=== PATIENT | male | born 1960 | race African-American/Black ===

== ENCOUNTER 2019-02-28 00:51 | Emergency (ER) | payer MEDICAID, OTHER ==
[~2019-02-28] VITALS: Ht 170.2 cm; Wt 61.7 kg
[~2019-02-28 00:51] MED LIST: IBUP-727 PO; QUET200T PO; ROB750 PO
[2019-02-28 00:56] VITALS: BP 163/82; PULSE 96; RESP 18; Ht 170.2 cm; Wt 61.7 kg
[2019-02-28] MEDS ORDERED: OXYCODONE/ACETAMINOPHEN (5/325) TAB PO ONE (03:30)
[2019-02-28] MEDS ORDERED: LIDOCAINE 4% CR TOP ONE (03:30)
[2019-02-28] MEDS ORDERED: LIDOCAINE 1% (MDV) 20 ML INJ SC ONE (03:30)
--- NOTE | 2019-02-28 03:45 | ERD ---
ER Documentation Chief Complaint Chief Complaint R 2nd toe pain after accidentally kicking [place] 3 days ago HPI 58-year-old male presents with complaint of swelling to the second toe for the past 3 days. He states that he is convinced it is infected and he would like it drained. Also states that there is pain in the same toe when walking. Denies any treatments. States the pain is currently 8 out of 10. Denies any fevers, chills, numbness. ROS All systems reviewed and are negative except as per history of present illness. Medications Home Meds Active Scripts Sulfamethoxazole/Trimethoprim* (Bactrim Ds* Tablet) 1 Each Tablet, 1 TAB PO BID, #14 TAB Prov:JOSEPH BURR PA-C 02/28/19 Cephalexin* (Keflex*) 500 Mg Capsule, 500 MG PO QID for 7 Days, CAP Prov:JOSEPH BURR PA-C 02/28/19 Reported Medications Ibuprofen (Motrin) 600 Mg Tablet, 600 MG PO TID 02/06/12 Quetiapine Fumarate* (Seroquel*) 200 Mg Tablet, 200 MG PO HS 02/06/12 Methocarbamol (Robaxin) 750 Mg Tab, 750 MG PO TID 02/06/12 Allergies Allergies: Coded Allergies: penicillin G (Verified Allergy, Severe, RASHES, 02/06/12) PMhx/Soc History of Surgery: No Anesthesia Reaction: No Hx Neurological Disorder: No Hx Respiratory Disorders: No Hx Cardiac Disorders: No Hx Psychiatric Problems: Yes (BIPOLAR) Hx Miscellaneous Medical Probl: Yes (HEP C) Hx Alcohol Use: No Hx Substance Use: Yes (Marijuana) Hx Tobacco Use: Yes (1 PACK A DAY) Smoking Status: Current every day smoker FmHx Family History: No diabetes, No coronary disease, No other Physical Exam Vitals Vital Signs Date Temp Pulse Resp B/P (MAP) Pulse Ox O2 O2 Flow FiO2 Time Delivery Rate 02/28/19 99.4 96 18 163/82 98 00:56 (109) Physical Exam Const: No acute distress Head: Atraumatic Eyes: Normal Conjunctiva ENT: Normal External Ears, Nose and Mouth. Neck: Full range of motion. No meningismus. Resp: Clear to auscultation bilaterally Cardio: Regular rate and rhythm, no murmurs Abd: Soft, non tender, non distended. Normal bowel sounds Skin: No petechiae or rashes Back: No midline or flank tenderness Ext: No cyanosis, or edema Neur: Awake and alert Psych: Normal Mood and Affect Second right toe: Toe is mildly edematous with no fluctuance or erythema noted. There are no discharge or lesions. Overlying skin is intact. Sensation is intact. Results 24 hrs Current Medications Medications Dose Sig/Randa Start Time Status Last (Trade) Ordered Route PRN Stop Time Admin Dose Reason Admin Lidocaine 20 ml ONCE ONCE 02/28/19 DC (Xylocaine SC 03:30 02/28/19 1% (Mdv) 20 03:31 ml) Lidocaine 1 applic ONCE ONCE 02/28/19 DC 02/28/19 (Lmx 4% Plus) TOP 03:30 02/28/19 03:35 03:31 Oxycodone/ 1 tab ONCE ONCE 02/28/19 DC 02/28/19 Acetaminophen PO 03:30 02/28/19 03:34 (Percocet 03:31 (5/ 325)) Bacitracin 1 applic STK-MED 02/28/19 DC (Bacitracin ONCE .ROUTE 06:24 02/28/19 Oint (Ud)) 06:25 Ibuprofen 800 mg ONCE ONCE 02/28/19 DC 02/28/19 (Motrin) PO 07:00 02/28/19 06:51 07:01 Procedures/MDM Patient was signed out to CHIRAG Carr for discharge. Patient had no site of fluctuance noted on exam and I did not feel an incision and drainage was indicated. Patient will be discharged with oral antibiotics and recommended to apply warm compresses. Patient is homeless and I feel that performing an incision and drainage would cause a elevated risk of infection given patient would have an open wound. Patient was placed on antibiotics. Patient was given crutches in the ER. MDM: 58-year-old male presenting with pain to his toe. Patient may have a small skin infection however there was no purulence felt on exam and I do not feel indication for incision and drainage. Patient will be placed on oral antibiotics and told to follow-up with primary doctor. Patient was told to return in 2 days for wound check. I feel that the risks of incision and drainage outweigh benefits at this time. Patient is discharged with strict ER precautions. All questions answered at discharge Departure Diagnosis: Primary Impression: Pain of toe Laterality: unspecified laterality Qualified Codes: M79.676 - Pain in unspecified toe(s) Condition: Stable GOSIA ESTRADA February 28, 2019 03:45 JOSEPH BURR PA-C February 28, 2019 07:18
[2019-02-28] MEDS ORDERED: CEPH-443 PO (06:09)
[2019-02-28] MEDS ORDERED: BACITRACIN 0.9 GM OINT ONE (06:24)
[2019-02-28] MEDS ORDERED: SULF1TAB31 PO (06:44)
[2019-02-28] MEDS ORDERED: IBUPROFEN 800 MG TAB PO ONE (07:00)
== END 2019-02-28 06:52 | disposition home or self-care (01) ==
LOC: FTE 00:51
DX: M79.674 Pain in right toe(s) (principal); F17.210 Nicotine dependence, cigarettes, uncomplicated
CPT/HCPCS: Z7610 ×5; 99283